=== PATIENT | male | born 1995 | race Caucasian/White ===

== ENCOUNTER 2024-10-29 11:47 | Emergency (ER) | payer SELFPAY ==
[2024-10-29 12:17] VITALS: BP 101/83; PULSE 79; RESP 16; TEMP 36.5; O2SAT 100
--- NOTE | 2024-10-29 12:33 | ED.URI ---
HPI - URI/Sore Throat General Chief Complaint: Upper Respiratory Infection Stated Complaint: burning in chest Time Seen by Provider: 10/29/24 12:33 Source: patient Mode of arrival: ambulatory Limitations: no limitations History of Present Illness HPI Narrative: 28 y/o male presented for c/o left chest pain/burning sensation for about 2 weeks. Says he feels a sore throat towards the end of the day. Pt was seen in an ER for the same complaint, says the CXR was negative at the time and was given Z-pack. Denies palpitations, dizziness, sob, wheezing, n/v/d/f/c. Endorses a history of GERD and heartburn. Related Data Allergies Allergy/AdvReac Type Severity Reaction Status Date / Time No Known Allergies Allergy Verified 10/29/24 12:18 Review of Systems Review of Systems: per HPI All systems reviewed & are unremarkable except as noted in HPI and below PMFSH Comments At time of signature, I have reviewed and agree with nursing past medical, surgical, social and family history unless otherwise noted. Please see nursing chart for further information. There is no relevant family history pertinent to the presenting complaint Exam Narrative: GENERAL: Well-appearing, in no acute distress. EYES: EOMI. No redness or drainage. Conjunctivae normal. ENT: Mucous membranes pink and moist. No rhinorrhea. TMs normal bilaterally. Throat normal. Uvula midline. NECK: Normal AROM. Supple. CHEST: No respiratory distress. lungs clear to all nicole. Nontender chest. HEART: Regular rate and rhythm. No murmur appreciated. SKIN: Warm, dry, no rash. Capillary refill normal. Normal skin turgor. NEURO: Alert and oriented x3. Gait steady. PSYCH: Normal affect. Course Course Emergency Course: Patient is aware of diagnosis, understands and agrees to treatment plan. Anticipatory guidance given. Patient agrees to follow-up as directed and is aware of reasons to seek care at the emergency department. Portions of this record may have been created with voice recognition software Level of Care: Express Care Visit Vital Signs Vital signs: Vital Signs Temperature 97.7 F 10/29/24 12:17 Pulse Rate 79 10/29/24 12:17 Respiratory Rate 16 10/29/24 12:17 Blood Pressure 101/83 10/29/24 12:17 Pulse Oximetry 100 10/29/24 12:17 Oxygen Delivery Room Air 10/29/24 12:17 Temperature 97.7 F 10/29/24 12:17 Pulse Rate 79 10/29/24 12:17 Respiratory Rate 16 10/29/24 12:17 Blood Pressure 101/83 10/29/24 12:17 Pulse Oximetry 100 10/29/24 12:17 Oxygen Delivery Room Air 10/29/24 12:17 MDM - URI/Sore Throat MDM Narrative Medical decision making narrative: Discussed physical exam findings will treat for GERD given his history and steroid for coughx2 weeks. Advised supportive measures and signs/symptoms to go to the ER. Pt is appropriate for outpt treatment and f/u. Differential Diagnosis Differential diagnosis: Likely upper respiratory infection, otitis media, sinusitis, viral infection, bronchitis, influenza and pharyngitis Discharge Plan Discharge Clinical Impression: Left-sided chest pain Patient Disposition: Home, Self-Care Condition: Stable Instructions: Pleurisy (ED), GERD (Gastroesophageal Reflux Disease) (ED) Additional Instructions: Rest. Avoid pushing, pulling, lifting -or anything that worsens the symptoms Tylenol 1000mg every 8 hours as needed Take steroid as directed with food Alternate ice/heat to the site. Avoid fatty, greasy, fried or spicy foods. Avoid laying down at night right after eating. Follow up with your primary care provider as needed in 1 week Go to the ER for worsening symptoms or concerns Patient Language: Chinese Prescriptions: New pantoprazole [Protonix] 40 mg tablet,delayed release (DR/EC) 40 mg PO QAM 28 Days Qty: 28 0RF prednisone 50 mg tablet 50 mg PO DAILY Qty: 5 0RF Follow-up/Referrals: PHYSICIAN,CHIEF BANK EXAMINER [Primary Care Provider] - Time of Disposition: 12:45
--- OUTSIDE RECORDS SUMMARY | 2024-10-29 14:37 | XMS_ITS | Clinical Summary ---
Author Organization [facility] Address [address] [place] [id number] Care Team Providers Care Manager Ui Name Role Phone None, Provider MD Primary Care Provider Unavaila ble Allergies No known active allergies Medications azithromycin (ZITHROMAX) 250 MG tablet Take 2 tablets by mouth on day one then 1 daily for four days. 6 tablet 10/20/2024 10/25/19 25 Active Problems No known active problems Encounters Date Type Department Care Team Description 10/20/2024 11:28 AM [facility] - 10/20/2024 3:44 PM [facility] Emergency [facility] Emergency Room [address] [place] [address] Luis Miguel Cervantes MD URI Discharge Disposition: Home or Self Care (Routine Discharge) 10/20/2024 Travel from Last 3 Months Immunizations Name Administration Dates Next Due DTaP (Daptacel) 04/28/2001 Dtp/Hib 1996,05/21/1996,03/19/1996 ,01/10/1996 Hepatitis A (Generic) 07/12/2007,04/14/2006 Influenza Adult (Generic) 07/12/2007 MMR 04/28/2001 Menactra 07/12/2007 Opv 05/21/1996,03/19/1996,01/10/1996 Polio IPV (Ipol) 04/28/2001 Tdap (Boostrix) 07/17/2023 Tdap (Generic) 02/06/2018,03/17/2016,07/12/2007 Varicella Vaccine 06/24/2007,01/21/1998 Family History Medical History Relation Comments Mental Health Father Diabetes Maternal Grandmother Mental Health Mother gestational diabetes Mother Mental Health Sister Relation Status Comments Father Maternal Grandmother Alive Mother Alive Sister Alive Social History Tobacco Use Types Packs/Day Years Used Date Smoking Tobacco: Former Cigarettes 0.5 5 2 014 - 2019 Smokeless Tobacco: Never Tobacco Cessation:Counseling Given: Not Answered Alcohol Use Standard Drinks/Week Comments No 0 (1 standard drink = 0.6 oz pur e alcohol) AUDIT-C Answer Date Recorded Frequency of Alcohol Consumption Never 11/13/2020 Average Number of Drinks Not on file 021 Frequency of Binge Drinking Not on file 12/2020 PHQ-2 Answer Date Recorded PHQ-2 Score - If the patient scores above 3, please move on to questions 3-9 2 11/13/2020 Sex and Gender Information Value Date Recorded Sex Assigned at Not on file Legal Sex Male 5:18 PM CDT Gender Identity Not on file Sexual Orientation Not on file Last Filed Vital Signs Vital Sign Reading Time Taken Comments Blood Pressure 110/66 10/20/2024 3:40 PM [facility] Pulse 80 10/20/2024 3:40 PM [facility] Temperature 36.7 C (98 F) 10/20/2024 3:40 PM [facility] Respiratory Rate 18 10/20/2024 3:40 PM [facility] Oxygen Saturation 99% 10/20/2024 3:40 PM [facility] Inhaled Oxygen Concentration - - Weight 81.2 kg (179 lb) 10/20/2024 11:28 AM [facility] Height 188 cm (6' 2 ) 10/20/2024 11:28 AM [facility] Body Mass Index 22.98 10/20/2024 11:28 AM [facility] Plan of Treatment Health Maintenance Due Date Last Done Comments Hepatitis C 11/15/2013 Hepatitis B Vaccines (1 of 3 - 19+ 3-dose series) 11/15/2014 Annual Physical 11/13/2021 11/13/2020 COVID-19 Vaccine ( season) 2024 Influenza Adult (#1) 2024 07/12/2007 DTaP, Tdap and Td Vaccines (6 - Td or Tdap) 07/17/2033 07/17/2023, 02/06/2018, 03/17/2016, Additional history exists Meningococcal Vaccine Aged Out 07/12/2007 No jimbo sukhwinder eligible based on patient's age to complete this topic HPV Vaccines Aged Out No longer eligi ble based on patient's age to complete this topic Meningococcal B Vaccine Aged Out No l onger eligible based on patient's age to complete this topic Pneumococcal Vaccine: Pediatrics (0 to 5 Years) and At-Risk Patients (6 to 64 Years) Aged Out No longer eligible based on patient's age to complete this topic RSV Immunizations Under 20 Months Aged Out No longer eligible based on patient's age to complete this topic Procedures Procedure Name Priority Date/Time Associated Diagnosis Comments XR CHEST PA+LAT STAT 10/20/2024 1:00 PM [facility] ECG 12-LEAD Routine 10/20/2024 11:34 AM [facility] from Last 3 Months Results * XR CHEST PA+LAT (10/20/2024 1:00 PM [facility]) Anatomical Region Laterality Modality Chest Radiographic Tran ging 10/20/2024 1:05 PM [facility] Impressions 10/20/2024 1:08 PM [facility] Impression: No acute findings. Referred By: Interpreted By: William Alcantar MD, 10/20/2024 1:05 PM Narrative 10/20/2024 1:08 PM [facility] [address] [place] [address] Examination: Chest 2 View History: Chest pain DATE/TIME: 10/20/2024 12:49 PM Comparison: 10/27/2015 Technique: PA and lateral views were obtained. Findings: Heart size, mediastinal contours and pulmonary vasculature are within normal limits. No pulmonary consolidation, pleural effusion or pneumothorax. No acute osseous abnormality. Procedure Note William Alcantar MD - 10/20/[address] [place] [address] Examination: Chest 2 View History: Chest pain DATE/TIME: 10/20/2024 12:49 PM Comparison: 10/27/2015 Technique: PA and lateral views were obtained. Findings: Heart size, mediastinal contours and pulmonary vasculature arewithin normal limits. No pulmonary consolidation, pleural effusion orpneumothorax. No acute osseous abnormality. Impression: No acute findings. Referred By: Interpreted By: William Alcantar MD, 10/20/2024 1:05 PM Luis Miguel Cervantes MD GENERAL IMAGING Final Result * ECG 12 lead (10/20/2024 11:34 AM [facility]) 10/20/2024 11:3 4 AM [facility] Narrative [facility] RAD - 10/21/2024 4:31 PM [facility] Test Date: 2024-10-20 Pat Name: HAILEY DORMAN Department: 85 Room: CARO Gender: Male Water Chemist: : 1995 Requested By: LUIS MIGUEL CERVANTES Order Number: [id number] Reading MD: Ben Manjarrez Measurements Intervals [place] Rate: 76 P: 74 TX: 174 QRS: 81 QRSD: 86 T: 45 QT: 358 QTc: 404 Interpretive Statements SINUS RHYTHM No previous ECG available for comparison [facility] Procedure Note Ben Manjarrez MD - 10/21/2024 [facility] Test Date: 2024-10-20 Pat Name: HAILEY HERBIE Department: 85 Room: CARO Gender: Male Water Chemist: : 1995 Requested By: LUIS MIGUEL CERVANTES Order Number: [id number] Reading MD: Ben Manjarrez Measurements Intervals [place] Rate: 76 P: 74 TX: 174 QRS: 81 QRSD: 86 T: 45 QT: 358 QTc: 404 Interpretive Statements SINUS RHYTHM No previous ECG available for comparison [facility] us Luis Miguel Cervantes MD ECG ORDERABLES Final Result [facility] ([facility] RAD from Last 3 Months Care Teams Manager Ui Relationship Specialty Start Date End Date None, Provider, PCP - General 11/06/21
== END 2024-10-29 12:46 | disposition home or self-care (01) ==
PROVIDERS: Emergency Provider Nurse Practitioner Family; Referring Provider Emergency Medicine
DX: R07.9 Chest pain, unspecified (principal); K21.9 Gastro-esophageal reflux disease without esophagitis
CPT/HCPCS: 99203; G0463